=== PATIENT | male | born 1970 | race Caucasian/White ===

== ENCOUNTER 2021-05-13 12:34 | Outpatient (CLI) | payer BC, SELFPAY ==
--- NOTE | ~2021-05-13 | MMUS_ITS ---
EXAMINATION: MM diagnostic mammo unilat LT, US breast LT complete HISTORY: Left gynecomastia. TECHNIQUE: Additional 3-D tomosynthesis images of the breasts were performed and synthetic 2-D images were generated. CAD analysis was submitted and interpreted. High resolution complete left breast ult rasound was performed. COMPARISON: None BREAST PARENCHYMAL COMPOSITION: Breast composed of scattered areas of fibroglandular density. FINDINGS: MAMMOGRAPHIC FINDINGS: There is bilateral asymmetric gynecomastia. No discrete mass, calcification or architectural distorti on is identified to suggest malignancy. ULTRASOUND: Complete US of all 4 quadrants of the left breast and retroareolar region was reviewed. Normal hetero geneous echotexture without focal solid or cystic mass. IMPRESSION: 1. No evidence for malignancy in the left breast. Benign gynecomastia. 2. Recommend follow-up clinical management for gynecomastia. BI-RADS Category 2: Benign finding(s). Reviewed, dictated and finalized at location A. IMPRESSION: 1. No evidence for malignancy in the left breast. Benign gynecomastia. 2. Recommend follow-up clinical management for gynecomastia. BI-RADS Category 2: Benign finding(s).
== END 2021-05-13 12:35 | disposition home or self-care (01) ==
LOC: ANHIMG 12:37
PROVIDERS: PCP Family Medicine; Visit Provider Physician Assistant
DX: N62 Hypertrophy of breast (principal)
CPT/HCPCS: 76641; 77065

== ENCOUNTER 2023-10-10 15:00 | Emergency (ER) | payer BC, SELFPAY ==
[2023-10-10 15:10] VITALS: BP 133/85; PULSE 102; RESP 14; TEMP 36.9; O2SAT 99
--- NOTE | 2023-10-10 16:11 | ED.GENADULT ---
HPI - General Adult General Chief complaint: Urogenital-Male <Abhijeet Reece PA-C - Last Filed: 10/10/23 18:29> Stated complaint: boil to right nut <Abhijeet Reece PA-C - Last Filed: 10/10/23 18:29> Time Seen by Provider: 10/10/23 16:05 <Abhijeet Reece PA-C - Last Filed: 10/10/23 18:29> Focused HPI: this is a 52-year-old male who presents to the ED for chief complaint of right testicular pain and swelling. Reports a focal boil that has developed over the past 3 days. Reports this happened 1 time in the past and seems to come up whenever he grooms the area by shaving. Denies associated fevers, chills, nausea, vomiting. Denies urinary symptoms. No Urologic history. the abscess drained on its own in the past but this time it is becoming more painful without draining. no concern for STDs. No discharge. GENERAL: Well-appearing, well-nourished, and in no acute distress. HEAD: Normocephalic, atraumatic. CHEST: Clear to auscultation. No respiratory distress. HEART: Regular rate and rhythm. : Focal 3 cm fluctuant erythematous and tender area of swelling to the right testicle that is very superficial in nature. No left testicular swelling or tenderness. No penile swelling or tenderness. NEURO: Alert and oriented x3. Patient screened in triage and initial orders placed. Additional care and disposition to be based upon diagnostic testing and treatment. <Abhijeet Reece PA-C - Last Filed: 10/10/23 18:29> Focused HPI: this is a 52-year-old male who presents to the ED for chief complaint of right testicular pain and swelling. Reports a focal boil that has developed over the past 3 days. Reports this happened 1 time in the past and seems to come up whenever he grooms the area by shaving. Denies associated fevers, chills, nausea, vomiting. Denies urinary symptoms. No Urologic history. The abscess drained on its own in the past but this time it is becoming more painful without draining. no concern for STDs. No discharge. GENERAL: Well-appearing, well-nourished, and in no acute distress. HEAD: Normocephalic, atraumatic. CHEST: Clear to auscultation. No respiratory distress. HEART: Regular rate and rhythm. : Focal 3 cm fluctuant erythematous and tender area of swelling to the right testicle that is very superficial in nature. No left testicular swelling or tenderness. No penile swelling or tenderness. NEURO: Alert and oriented x3. Patient screened in triage and initial orders placed. Additional care and disposition to be based upon diagnostic testing and treatment. Agree with triage assessment. Patient states that last time this happened the area developed ahead and started draining on its own but this time it did not do that and it is causing him the discomfort so he decided to come to the emergency department for further evaluation. <Roosevelt Gipson MD - Last Filed: 10/10/23 21:43> Related Data Allergies/adverse reactions: Allergies Allergy/AdvReac Type Severity Reaction Status Date / Time No Known Allergies Allergy Verified 05/19/21 11:38 <Abhijeet Reece PA-C - Last Filed: 10/10/23 18:29> Review of Systems Review of Systems: All systems are reviewed and are negative unless stated otherwise in the HPI. <Roosevelt Gipson MD - Last Filed: 10/10/23 21:43> PMFSH Past Medical History Medical History: Medical History GERD (gastroesophageal reflux disease) High cholesterol LISSETT (obstructive sleep apnea) Osteoarthritis <Abhijeet Reece PA-C - Last Filed: 10/10/23 18:29> Surgical History Surgical History: Surgical History History of appendectomy <Abhijeet Reece PA-C - Last Filed: 10/10/23 18:29> Family History Family History: Family History Sibling Family history of mental disorder
[2023-10-10 16:22] LABS: Bacteria Urine None Seen /hpf; Non Pathogenic Casts 0-2; RBC Urine 0-2 /hpf (0-2); Squamous Epithelial Cell Urine None Seen /hpf (Few); WBC Urine 0-5 /hpf (0-3)
[2023-10-10 16:27] LABS: Add Urine Microscopic? NO; Appearance Urine Clear (Clear); Color Urine Yellow (Yellow); Glucose Urine UA Negative (Negative); Ketones Urine Negative (Negative); Protein Urine Negative (Negative); Specific Grav Ur 1.025 (1.001-1.035); pH Urine 6.5 (5.0-9.0)
[2023-10-10 16:28] LABS: Bilirubin Urine Negative (Negative); Blood Urine Trace-intact (Negative); Leukocyte Esterase Ur Negative LEU/UL (Negative); Nitrate Urine Negative (Negative); Urobilinogen Urine 0.2 mg/dL (<2.0)
--- NOTE | 2023-10-10 16:47 | PC.NURSE ---
RN chaperoned with Dr. Gipson exam pt testicle. Noted large red, firm abscess to right testicle. Pt states started 1 week ago, with increasing pain today
[2023-10-10] MEDS: LIDOCAINE HCL 1% LOCAL INJ 10 ML VIAL INFILTRATE (17:50)
[2023-10-10 18:32] VITALS: BP 133/78; PULSE 89; RESP 18; TEMP 36.6; O2SAT 98
--- NOTE | 2023-10-10 18:32 | PC.NURSE ---
1745 I & D performed by pt tolerated well
== END 2023-10-10 18:34 | disposition home or self-care (01) ==
PROVIDERS: Physician Assistant; Emergency Provider Emergency Medicine; PCP Family Medicine
DX: N49.2 Inflammatory disorders of scrotum (principal); E78.00 Pure hypercholesterolemia, unspecified; K21.9 Gastro-esophageal reflux disease without esophagitis; G47.33 Obstructive sleep apnea (adult) (pediatric); M19.90 Unspecified osteoarthritis, unspecified site; F17.210 Nicotine dependence, cigarettes, uncomplicated
CPT/HCPCS: 10060; 54700; 55100; 81003; 99283